=== PATIENT | male | born 1955 | race Caucasian/White ===

== ENCOUNTER → 2019-07-15 10:21 | Outpatient (BNVA) | payer OTHER, SELFPAY | PROVIDERS: Family Provider Family Medicine; PCP Family Medicine; Visit Provider Urology | DX: R97.20 Elevated prostate specific antigen [PSA] (principal) | CPT/HCPCS: 81001 ==

== ENCOUNTER 2020-03-10 08:13 | Outpatient (CLI) | payer OTHER, SELFPAY ==
[2020-03-10 08:29] VITALS: BMI 25.4
--- NOTE | 2020-03-10 09:18 | ECG_ITS ---
[facility] Test Date: 2020-03-10 Pat Name: David Munoz Department: Room: Gender: Male Card Maker: Laney Bassett : 1955 Requested By: Logan Villatoro Order Number: [id number] Irwin MD: Logan Villatoro M.D. Interpretive Statements NAME OF STUDY: EXERCISE SESTAMIBI STRESS TEST INDICATION: Chest Pain PROCEDURE: The baseline electrocardiogram showed normal sinus rhythm with normal ST-Ts. At the baseline, the patient's blood pressure was 140/94 mm Hg with a heart rate of 70. The patient exercised for 9 minutes and 31 seconds on a standard Oscar protocol. Patient attained a maximum heart rate of 139 beats per minute(89% of the maximum predicted heart rate) with a blood pressure at the peak exercise of 209/106 mm Hg. The EKG at the peak exercise revealed no significant changes. Patient did not have any chest pain or any significant arrhythmis with the exercise Sestamibi was injected 1 minute prior to the peak exercise During the recovery phase, there were no new changes. Blood pressure at the end of the recovery phase was 204/103 mm Hg with a heart rate of 66 per minute. CONCLUSION: 1. No significant EKG changes with the [treadmill exercise 2. No exercise-induced chest pain or cardiac arrhythmia 3. Good exercise tolerance, attained a maximum of 10.2 METs. Hypertensive response to exercise 4. Sestamibi/Sestamibi perfusion results pending; see separate report. Electronically Signed On 03-17-2020 20:04:20 HAT BRIM CURLER by Logan Villatoro M.D. [email or web address]
--- NOTE | 2020-03-10 09:18 | NMCV_ITS ---
NM aaliyah perf SPECT r/s* [id number] David Munoz Age: 64 Gender: M : 1955 Exam Date: 03/10/2020 09:18 Ordering Phys: Logan Villatoro MD ([email or web address]) Technologist: ELPIDIO Asencio Exam Location: [facility] Indications: SHORTNESS OF BREATH STRESS TEST Please see separate stress test report in [facility] for full findings IMAGE PROTOCOL Rest/Stress 1 Exercise Day Radiopharmaceutical Dose (mCi) Administration Site Administered by Rest: Tc-99m 10.9 IV ELPIDIO Asencio Sestamibi Stress:Tc-99m 32.8 IV Sestamibi Rest: 10-Mar-2020 Discovery 630 Stress: 10-Mar-2020 Discovery 630 Radiopharmaceutical was injected at 85 % maximum heart rate. Images obtained in supine and prone position. SPECT RESULTS Technical Quality: Excellent Raw Data Analysis: Normal Image Corrections: No attenuation or motion correction applied Summed Stress Score: 0 Summed Rest Score: 0 Summed Difference Score: 0 PERFUSION FINDINGS Fairly uniform myocardial tracer uptake with no significant perfusion abnormalities were noted FUNCTIONAL RESULTS (calculated via Gated SPECT) Stress Image LV EF (%): 72 Stress EDV (mL):89 TID: 0.77 Stress ESV (mL):25 FUNCTIONAL FINDINGS: Segmental wall motion analysis revealing no gross wall motion normalities. IMPRESSIONS 1. Unremarkable myocardial perfusion imaging 2. Normal LV ejection fraction of 72%. 3. LV wall motion analysis revealing no gross wall motion normalities. 4. Normal LV volume. No significant coronary ischemia, based on the above findings Dr Logan Villatoro MD FAC (Electronically Signed) Final Date: 15 March 2020 09:38 S
[2020-03-10 10:25] VITALS: BP 180/93; PULSE 87
== END 2020-03-10 08:14 | disposition home or self-care (01) ==
LOC: RAD 08:14 → CDL 08:27
PROVIDERS: Visit Provider Internal Medicine Cardiovascular Disease
DX: R06.02 Shortness of breath (principal)
CPT/HCPCS: 78452; 93017; A9500

== ENCOUNTER → 2020-07-14 09:08 | Outpatient (BNVA) | payer OTHER, SELFPAY | PROVIDERS: PCP Family Medicine; Visit Provider Urology | DX: R97.20 Elevated prostate specific antigen [PSA] (principal); E11.65 Type 2 diabetes mellitus with hyperglycemia | CPT/HCPCS: 81003 ==

== ENCOUNTER 2020-08-27 08:05 | Outpatient (CLI) | payer OTHER, SELFPAY ==
--- NOTE | 2020-08-27 08:15 | FL_ITS ---
WS: [id number] BARIUM ENEMA SINGLE CONTRAST. HISTORY: Z79.01 - [employer] (current) use of anticoagulants, prior appendectomy. COMPARISON: None available. FLUOROSCOPY TIME: 3.8 minutes. Barium is instilled via rectal tube and gravity. Marked tortuosity and overlapping loops of colon. Th ere are numerous diverticula in the sigmoid. No perforation or obstruction. No filling defects are pr esent. Overlapping bowel loops involving the hepatic flexure and the splenic flexure. There is a smal l amount of contrast extravasating into the small bowel. Cecum only minimally distends with contrast. Patient became uncomfortable with the distention of the colon towards the end of the examination. FL/FL barium enema [id number] IMPRESSION: 1. Sigmoid diverticulosis. 2. No strictures or mucosal lesions are identified. 3. Tortuous overlapping loops of colon. 4. Prior appendectomy.
== END 2020-08-27 08:06 | disposition home or self-care (01) ==
PROVIDERS: PCP Family Medicine; Visit Provider Surgery
DX: Z79.01 Long term (current) use of anticoagulants (principal); K57.30 Diverticulosis of large intestine without perforation or abscess without bleeding; Q42.8 Congenital absence, atresia and stenosis of other parts of large intestine
CPT/HCPCS: 74270

== ENCOUNTER 2021-01-10 06:00 | Outpatient (RCR) | payer OTHER, SELFPAY | END 2021-02-08 23:59 | disposition home or self-care (01) | LOC: SPT 06:00 | PROVIDERS: PCP Family Medicine; Visit Provider Family Medicine | DX: M75.01 Adhesive capsulitis of right shoulder (principal) | CPT/HCPCS: 97110; 97140; 97161 ==

== ENCOUNTER → 2021-01-18 08:29 | Outpatient (BNVA) | payer OTHER, SELFPAY | PROVIDERS: PCP Family Medicine; Visit Provider Urology | DX: R97.20 Elevated prostate specific antigen [PSA] (principal) | CPT/HCPCS: 81003 ==

== ENCOUNTER 2021-02-08 12:27 | Outpatient (CLI) | payer OTHER, SELFPAY ==
--- NOTE | 2021-02-08 12:38 | USCV_ITS ---
David Munoz Age: 65 Gender: M : 1955 Exam Date: 02/08/2021 13:20 Ordering Phys: Chanel Fraga MD Technologist: JESSICA Exam Location: [facility] [place] Indication: Smoker/AAA HISTORY: Diameter (cm) AP x Transverse x Length Velocity (cm/s) Waveform Prox Aorta: 1.91 x 2.14 x 66.10 Mid Aorta: 1.80 x 2.06 x 70.80 Distal Aorta: 1.89 x 2.14 x 63.80 Right Iliac Prox: 1.18 x 1.18 x 79.30 Left Iliac Prox: 1.15 x 1.12 x 105.30 Stent Prox Landing x x Aneurysmal Sac Max x x Lt Lat Sac Dim Rt Lat Sac Dim Stent Dist Landing x x Right Iliac Stent x x Left Iliac Stent x x Right Renal Art Left Renal Art FINDINGS: CONCLUSIONS No evidence of abdominal aortic or bilateral iliac aneurysm. 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 Kb Bell MD (Electronically Signed) Final Date: 09 February 2021 16:07 S
== END 2021-02-08 12:28 | disposition home or self-care (01) ==
LOC: RAD 12:28
PROVIDERS: PCP Family Medicine; Visit Provider Family Medicine
DX: I71.4 Abdominal aortic aneurysm, without rupture (principal); F17.210 Nicotine dependence, cigarettes, uncomplicated
CPT/HCPCS: 93978

== ENCOUNTER 2021-02-09 06:00 | Outpatient (RCR) | payer OTHER, SELFPAY | END 2021-03-01 23:59 | disposition home or self-care (01) | LOC: SPT 06:00 | PROVIDERS: PCP Family Medicine; Visit Provider Family Medicine | DX: M75.01 Adhesive capsulitis of right shoulder (principal) | CPT/HCPCS: 97110 ==

== ENCOUNTER 2021-06-21 15:28 | Outpatient (CLI) | payer OTHER, SELFPAY ==
--- NOTE | 2021-06-21 16:58 | MR_ITS ---
WS: [id number] MRI HEAD WITHOUT CONTRAST TECHNIQUE: Sagittal T1, T2 axial, T2 axial FLAIR, axial and coronal T1 images, axial susceptibility w eighted imaging, axial diffusion weighted images, and coronal T2 images were obtained. CLINICAL INFORMATION: TIA SYMPTOMS COMPARISON: MRI , CT FINDINGS: No evidence of restricted diffusion to suggest acute ischemia. Ventricular system and basal cisterns are patent. Mild small vessel changes. Mild parenchymal volume loss. Normal posterior fossa. Normal v ascular flow voids at the skull base. No extra-axial fluid collections. No evidence of mass or mass e ffect. Mild mucosal thickening in the paranasal sinuses. Mastoid air cells are well aerated. No hemosiderin on susceptibly weighted images. Normal optic chiasm and pituitary infundibulum. Mild t o moderate symmetric atrophy temporal lobes and hippocampal formations. MR/MR head wo con* [id number] IMPRESSION: 1. No evidence of restricted diffusion to suggest acute ischemia. 2. Mild small vessel changes with mild parenchymal volume loss unchanged since 2016. 3. Mild mucosal thickening paranasal sinuses. Mastoid air cells are well aerat ed. 4. No hemosiderin on susceptibly weighted images. 5. Mild to moderate symmetric atrophy temporal lobes and hippocampal formation s. 6. No other significant findings.
== END 2021-06-21 15:29 | disposition home or self-care (01) ==
LOC: RAD 15:29
PROVIDERS: PCP Family Medicine; Visit Provider Family Medicine
DX: Z01.89 Encounter for other specified special examinations (principal); G31.9 Degenerative disease of nervous system, unspecified
CPT/HCPCS: 70551

== ENCOUNTER 2021-07-19 07:49 | Outpatient (CLI) | payer OTHER, SELFPAY ==
[2021-07-19 08:32] LABS: Prostate Specific Antigen Scr 4.65 ng/mL (0-4)
== END 2021-07-19 07:50 | disposition home or self-care (01) ==
PROVIDERS: PCP Family Medicine; Visit Provider Urology
DX: R97.20 Elevated prostate specific antigen [PSA] (principal); Z95.5 Presence of coronary angioplasty implant and graft
CPT/HCPCS: 36415; 51798; 81003; 99213; G0103

== ENCOUNTER → 2021-09-14 09:59 | Outpatient (BNVA) | payer OTHER, SELFPAY | PROVIDERS: PCP Family Medicine; Visit Provider Internal Medicine Cardiovascular Disease | DX: I25.118 Atherosclerotic heart disease of native coronary artery with other forms of angina pectoris (principal); Z86.73 Personal history of transient ischemic attack (TIA), and cerebral infarction without residual deficits; E11.65 Type 2 diabetes mellitus with hyperglycemia; E78.2 Mixed hyperlipidemia; I10 Essential (primary) hypertension; Z87.891 Personal history of nicotine dependence; Z79.84 Long term (current) use of oral hypoglycemic drugs | CPT/HCPCS: 99214 ==

== ENCOUNTER 2021-09-29 19:00 | Emergency (ER) | payer OTHER, MEDICARE, SELFPAY ==
--- NOTE | 2021-09-29 19:35 | XRR_ITS ---
PROCEDURE INFORMATION: Exam: XR Right Hand Exam date and time: 09/29/2021 10:43 PM Age: 65 years old Clinical indication: Swelling; Hand; Right; Additional info: R hand swelling TECHNIQUE: Imaging protocol: Radiologic exam of the Right hand. Views: 3 or more views. COMPARISON: No relevant prior studies available. FINDINGS: Bones/joints: Mild joint space narrowing is seen in the interphalangeal joints compatible with osteoarthritic changes. Soft tissues: Normal. XR/XR hand RT min 3V* [id number] IMPRESSION: No acute findings.
[2021-09-29 19:41] VITALS: BP 160/86; PULSE 84; RESP 17; TEMP 37.7; O2SAT 96; BMI 26.4
--- NOTE | 2021-09-29 22:31 | ED_ITS ---
HPI - Wound/Laceration General: Chief Complaint: Wound/Laceration Stated Complaint: R hand swollen sent by urgant care Time Seen by Provider: 09/29/21 22:30 History of Present Illness: Mr Munoz is a 65-year-old gentleman with history of CAD, hypertension, hyperlipidemia, TIA, listed diabetes the patient denies history who presents to the emergency department due to arm concern. He reports playing with his puppy 2 days ago, puppy is up-to-date on vaccines including rabies, and was briefly caught by the tooth on the palmar aspect of his right hand near the thenar eminence. He denies puncture and thought it was just a small scrape. He treated it with local wound care and starting yesterday noticed some redness and swelling. Today's redness and swelling spread up the arm. He has aching moderate intensity pain especially with making a fist. Denies signs of definitive systemic illness. Denies frequent episodes of skin infection in the past. No other specific changes in health, exacerbating, or alleviating factors identified. Onset (ago): hour(s) Location: other Place: home Patient tetanus UTD: Yes Context: accidental Review of Systems General: Reports: 10 or more systems reviewed and unremarkable except in HPI and below PFSH ED PFSH: Medical History Anxiety Atypical chest pain CAD (coronary artery disease) Diabetes Elevated PSA Hyperlipidemia Hypertension TIA (transient ischemic attack) Surgical History H/O vasectomy Hx of appendectomy S/P right knee arthroscopy S/P T&A (status post tonsillectomy and adenoidectomy) Family History Grandfather Cancer Mother , at age 83 Diabetes Father No problems noted. Other Hypertension Denies family history of CAD (coronary artery disease) Clotting disorder Dementia Chronic kidney disease (CKD) Suicide Anesthesia complication Bleeding disorder Lung disease Stroke Social History Smoking and tobacco status: never smoked Alcohol intake: current Alcohol intake frequency: few times a month Marital status: Current occupational status: retired History of recent travel: No Physical Exam Const: COMMON NORMALS: alert GENERAL APPEARANCE: cooperative and well developed HENMT: COMMON NORMALS: normocephalic and atraumatic HEAD & SCALP: normo cephalic and atraumatic Eye: COMMON NORMALS: conjunctivae normal CONJUNCTIVA: Yes conjunctivae normal SCLERA: sclerae normal Neck/C-Spine: COMMON NORMALS: supple GENERAL: Yes trachea midline Resp: COMMON NORMALS: normal respiratory effort EFFORT & INSPECTION: Yes able to speak in complete sentences Cardio: COMMON NORMALS: regular rate and regular rhythm RATE: regular rate RHYTHM: regular rhythm GI: COMMON NORMALS: Soft to palpation PALPATION: Yes Soft to palpation and No Tenderness to palpation present (GI) PERCUSSION: normal to percussion Extremity: NARRATIVE EXTREMITY EXAM: Erythema and swelling about area of wound. There is some spread to mid forearm. Erythema is not circumferential. Mild tenderness to palpation. No evidence of tenosynovitis. Range of motion and distal CMS intact. GENERAL: Yes normal exam except as noted and No edema Neuro: COMMON NORMALS: moves all extremities SENSORIUM/ORIENTATION: Yes elan rt and No Orientation impaired Psych: COMMON NORMALS: mental status grossly normal and Normal thought process present THOUGHT PROCESS: Normal thought process present Course Vital Signs: Vital signs: Vital Signs Temperature 100 F H 09/29/21 19:41 Pulse Rate 65 09/30/21 01:46 Respiratory Rate 18 09/30/21 01:46 Blood Pressure 131/81 09/30/21 01:46 Pulse Oximetry 97 09/30/21 01:46 Oxygen Delivery Me thod 09/30/21 01:39 MDM - Wound/Laceration Medical Decision Making 65-year-old gentleman presenting with spreading erythema and swelling after vaccinated dog bite/scrape with teeth. Patient is nontoxic in appearance. No leukocytosis. Labs otherwise without significant abnormality. Antibiotics given and patient satisfactory for outpatient management with strict return precautions. Medical Records I reviewed the patient's medical records. Lab Data I reviewed the patient's lab results. : 09/29/21 22:20 09/29/21 22:20 Radiology Impressions Hand X-Ray 09/29/21 19:35 IMPRESSION: No acute findings. Laboratory Results WBC 9.9 10^3/uL (4.0-10.0) 09/29/21 22:20 RBC 4.47 10^6/uL (4.1-5.3) 09/29/21 22:20 Hgb 15.0 g/dL (11.7-16.6) 09/29/21 22:20 Hct 44.7 % (42.0-52.0) 09/29/21 22:20 MCV 100.0 fl (80-94) H 09/29/21 22:20 MCH 33.6 pg (28.0-34.0) 09/29/21 22:20 MCHC 33.6 g/dL (30.0-36.0) 09/29/21 22:20 RDW 13.5 % (12.1-15.1) 09/29/21 22:20 Plt Count 210 10^3/cmm (130-400) 09/29/21 22:20 MPV 9.4 fL (7.4-10.4) 09/29/21 22:20 Neut % (Auto) 67.0 % 09/29/21 22:20 Lymph % (Auto) 23.1 % 09/29/21 22:20 Spink % (Auto) 8.8 % 09/29/21 22:20 Eos % (Auto) 0.6 % 09/29/21 22:20 Baso % (Auto) 0.3 % 09/29/21 22:20 Neut # (Auto) 6.66 10^3/uL (1.8-7.7) 09/29/21 22:20 Lymph # (Auto) 2.3 10^3/uL (0.8-4.8) 09/29/21 22:20 Spink # (Auto) 0.9 10^3/uL (0.2-0.9) 09/29/21 22:20 Eos # (Auto) 0.1 10^3/uL (0.0-0.8) 09/29/21 22:20 Baso # (Auto) 0.0 10^3/uL (0.0-0.1) 09/29/21 22:20 Nucleated RBC % (auto) 0 % 09/29/21 22:20 Nucleated RBCs # 0.0 /100WBC 09/29/21 22:20 Sodium 136 mmol/L (136-145) 09/29/21 22:20 Potassium 4.0 mmol/L (3.5-5.1) 09/29/21 22:20 Chloride 99 mmol/L (98-107) 09/29/21 22:20 Carbon Dioxide 26 mmol/L (22-29) 09/29/21 22:20 Anion Gap 15.0 (5-19) 09/29/21 22:20 BUN 24 mg/dL (8-23) H 09/29/21 22:20 Creatinine 0.9 mg/dL (0.7-1.2) 09/29/21 22:20 GFR Calculation 84.4 mL/min (90-130) L 09/29/21 22:20 Glucose 107 mg/dL (65-115) 09/29/21 22:20 Calculated Osmolality 287 mOsm/kg (285-295) 09/29/21 22:20 Lactic Acid 1.1 mmol/L (0.5-2.2) 09/29/21 22:20 Calcium 9.8 mg/dL (8.5-10.5) 09/29/21 22:20 Discharge Plan Discharge Patient Disposition: Home Clinical Impression: Dog bite, Cellulitis Condition: Stable Prescriptions: New ciprofloxacin HCl 500 mg tablet 500 mg PO Q12H Qty: 14 0RF No Action clopidogrel 75 mg tablet 75 mg PO DAILY atorvastatin 80 mg tablet 80 mg PO DAILY Label Comments: alternates 1 tab with 1/2 tab every other day nitroglycerin [Nitrostat] 0.4 mg tablet, sublingual 0.4 mg SUBLINGUAL Q5M PRN losartan 50 mg tablet 50 mg PO DAILY cholecalciferol (vitamin D3) 25 mcg (1,000 unit) capsule 50 mcg PO DAILY citalopram 20 mg tablet 20 mg PO DAILY metoprolol tartrate 25 mg tablet 12.5 mg PO BID aspirin 81 mg tablet,delayed release (DR/EC) 81 mg PO DAILY Discharge Orders: Discharge ED (Routine); Ordered 09/30/21 Ordered By: Chetan Valdivia Referrals: Chanel Fraga MD [Primary Care Provider] - Discharge Diet: Usual diet Discharge Activity: Increase activity as tolerated Patient Instructions: Animal Bite (ED), Cellulitis (ED) Activity Restrictions/Additional Instructions: Thank you for visiting the emergency department. You were seen and evaluated for arm redness and swelling after animal bite. This will be treated with antibiotics. Please follow-up with your primary care provider. Please return to the emergency department for worsening symptoms, signs of systemic illness such as fevers or chills or nausea or vomiting, or anything else that you are concerned about and feel needs emergency department evaluation. Coding Level of Care Code ED Research Aide for Johanny Ruiz
[2021-09-29 23:11] VITALS: PULSE 63; RESP 20; O2SAT 98
[2021-09-29 23:18] LABS: Basophils % 0.3 %; Eosinophils # 0.1 10^3/uL (0.0-0.8); Eosinophils % 0.6 %; Hematocrit 44.7 % (42.0-52.0); Lymphocytes # 2.3 10^3/uL (0.8-4.8); Lymphocytes % 23.1 %; Mean Corpuscular HGB Conc 33.6 g/dL (30.0-36.0); Mean Corpuscular Hemoglobin 33.6 pg (28.0-34.0); Mean Platelet Volume 9.4 fL (7.4-10.4); Monocytes # 0.9 10^3/uL (0.2-0.9); Monocytes % 8.8 %; Neutrophils # 6.66 10^3/uL (1.8-7.7); Nucleated Red Blood Cells % 0 %; Platelet Count 210 10^3/cmm (130-400); Red Blood Count 4.47 10^6/uL (4.1-5.3); Red Cell Distribution Width 13.5 % (12.1-15.1); White Blood Count 9.9 10^3/uL (4.0-10.0)
[2021-09-29 23:27] LABS: Blood Urea Nitrogen 24 mg/dL (8-23); Calcium 9.8 mg/dL (8.5-10.5); Carbon Dioxide 26 mmol/L (22-29); Chloride 99 mmol/L (98-107); Glomerular Filtration Rate 84.4 mL/min (90-130); Glucose 107 mg/dL (65-115); Osmolality Calculated 287 mOsm/kg (285-295); Sodium 136 mmol/L (136-145)
[2021-09-29 23:28] LABS: Lactic Sepsis W/Reflex 1.1 mmol/L (0.5-2.2)
[2021-09-29] MEDS: ciprofloxacin 400 MG/200 ML PREMIX 200 MG IV (23:37)
[2021-09-30 00:28] VITALS: BP 144/84; PULSE 59; RESP 16; O2SAT 98
[2021-09-30] MEDS: clindamycin 600 MG/50 ML PREMIX 100 MG IV (00:33)
[2021-09-30 00:38] VITALS: BP 133/86; PULSE 59; RESP 18; O2SAT 96
[2021-09-30 01:39] VITALS: BP 131/81; PULSE 65; RESP 18; O2SAT 97
[2021-09-30 01:46] VITALS: BP 131/81; PULSE 65; RESP 18; O2SAT 97
== END 2021-09-30 01:45 | disposition home or self-care (01) ==
PROVIDERS: Emergency Provider Emergency Medicine; PCP Family Medicine
DX: L03.113 Cellulitis of right upper limb (principal); S61.451A Open bite of right hand, initial encounter; W54.0XXA Bitten by dog, initial encounter; Z79.02 Long term (current) use of antithrombotics/antiplatelets; Z79.82 Long term (current) use of aspirin; I25.10 Atherosclerotic heart disease of native coronary artery without angina pectoris; E11.9 Type 2 diabetes mellitus without complications; E78.5 Hyperlipidemia, unspecified; I10 Essential (primary) hypertension; Z86.73 Personal history of transient ischemic attack (TIA), and cerebral infarction without residual deficits
CPT/HCPCS: 73130; 80048; 83605; 85025; 87040; 96365; 96367; 99284; J0744; J3490

== ENCOUNTER → 2022-01-24 09:45 | Outpatient (BNVA) | payer OTHER, MEDICARE, SELFPAY | PROVIDERS: PCP Family Medicine; Visit Provider Urology | DX: N40.1 Benign prostatic hyperplasia with lower urinary tract symptoms (principal); R97.20 Elevated prostate specific antigen [PSA] | CPT/HCPCS: 81003; 99214 ==

== ENCOUNTER → 2022-03-22 09:12 | Outpatient (BNVA) | payer OTHER, SELFPAY | PROVIDERS: PCP Family Medicine; Visit Provider Internal Medicine Cardiovascular Disease | DX: I25.118 Atherosclerotic heart disease of native coronary artery with other forms of angina pectoris (principal); I10 Essential (primary) hypertension; E78.5 Hyperlipidemia, unspecified; E11.65 Type 2 diabetes mellitus with hyperglycemia; E78.2 Mixed hyperlipidemia; Z86.73 Personal history of transient ischemic attack (TIA), and cerebral infarction without residual deficits; Z87.891 Personal history of nicotine dependence | CPT/HCPCS: 99214 ==

== ENCOUNTER 2022-03-30 09:20 | Outpatient (CLI) | payer OTHER, SELFPAY ==
[2022-03-30 10:31] LABS: Alanine Aminotransferase 16 U/L (0-41); Albumin Level 4.2 g/dL (3.5-5.2); Alkaline Phosphatase 103 U/L (40-130); Aspartate Amino Transferase 20 U/L (0-40); Cholesterol 113 mg/dL (0-200); Globulin 2.8 g/dL (1.3-4.6); HDL Cholesterol 29 mg/dL (60-100); LDL Cholesterol Calculated 52 mg/dL (50-129); LDL HDL Ratio 1.79 RATIO (0.00-3.22); Total Bilirubin 0.5 mg/dL (0.15-1.2); Triglycerides 162 mg/dL (0-150)
== END 2022-03-30 09:21 | disposition home or self-care (01) ==
LOC: LAB 09:22
PROVIDERS: PCP Family Medicine; Visit Provider Internal Medicine Cardiovascular Disease
DX: E78.5 Hyperlipidemia, unspecified (principal); E11.65 Type 2 diabetes mellitus with hyperglycemia
CPT/HCPCS: 80061; 80076

== ENCOUNTER 2022-07-11 12:57 | Outpatient (CLI) | payer OTHER, SELFPAY ==
[2022-07-11 14:11] LABS: Prostate Specific AG Urology 4.33 ng/mL (0-4)
== END 2022-07-11 12:58 | disposition home or self-care (01) ==
PROVIDERS: PCP Family Medicine; Visit Provider Urology
DX: R97.20 Elevated prostate specific antigen [PSA] (principal)
CPT/HCPCS: 36415; 84153

== ENCOUNTER → 2022-07-18 13:56 | Outpatient (BNVA) | payer OTHER, SELFPAY | PROVIDERS: PCP Family Medicine; Visit Provider Urology | DX: N40.1 Benign prostatic hyperplasia with lower urinary tract symptoms (principal); R97.20 Elevated prostate specific antigen [PSA] | CPT/HCPCS: 51741; 51798; 99213 ==

== ENCOUNTER → 2022-10-02 14:38 | Outpatient (BNVA) | payer OTHER, SELFPAY | PROVIDERS: PCP Family Medicine; Visit Provider Internal Medicine Cardiovascular Disease | DX: I25.10 Atherosclerotic heart disease of native coronary artery without angina pectoris (principal); I10 Essential (primary) hypertension; E78.2 Mixed hyperlipidemia; Z86.73 Personal history of transient ischemic attack (TIA), and cerebral infarction without residual deficits; Z87.891 Personal history of nicotine dependence | CPT/HCPCS: 99214 ==

== ENCOUNTER 2022-10-06 07:29 | Outpatient (CLI) | payer OTHER, SELFPAY ==
[2022-10-06 08:37] LABS: Alanine Aminotransferase 16 U/L (0-41); Albumin Level 3.8 g/dL (3.5-5.2); Alkaline Phosphatase 95 U/L (40-130); Aspartate Amino Transferase 20 U/L (0-40); Chol HDL Ratio 4.17 mg/dL (1.0-5.00); Cholesterol 100 mg/dL (0-200); Globulin 2.6 g/dL (1.3-4.6); HDL Cholesterol 24 mg/dL (60-100); LDL Cholesterol Calculated 41 mg/dL (50-129); LDL HDL Ratio 1.71 RATIO (0.00-3.22); Total Bilirubin 0.4 mg/dL (0.15-1.2); Total Protein 6.4 g/dL (6.6-8.7); Triglycerides 177 mg/dL (0-150)
== END 2022-10-06 07:30 | disposition home or self-care (01) ==
LOC: LAB 07:31
PROVIDERS: PCP Family Medicine; Visit Provider Internal Medicine Cardiovascular Disease
DX: E78.5 Hyperlipidemia, unspecified (principal)
CPT/HCPCS: 36415; 80061; 80076

== ENCOUNTER → 2023-05-04 08:54 | Outpatient (BNVA) | payer OTHER, SELFPAY | PROVIDERS: PCP Family Medicine; Visit Provider Nurse Practitioner Family | DX: I25.10 Atherosclerotic heart disease of native coronary artery without angina pectoris (principal) | CPT/HCPCS: 93005; 99214 ==

== ENCOUNTER → 2023-12-03 15:09 | Outpatient (BNVA) | payer OTHER, SELFPAY | PROVIDERS: PCP Family Medicine; Visit Provider Internal Medicine Cardiovascular Disease | DX: E78.5 Hyperlipidemia, unspecified (principal); R07.9 Chest pain, unspecified | CPT/HCPCS: 93005; 99214 ==

== ENCOUNTER 2023-12-04 07:31 | Outpatient (CLI) | payer OTHER, SELFPAY ==
[2023-12-04 08:15] LABS: Alanine Aminotransferase 17 U/L (0-41); Albumin Level 4.1 g/dL (3.5-5.2); Alkaline Phosphatase 95 U/L (40-130); Aspartate Amino Transferase 20 U/L (0-40); Chol HDL Ratio 4.42 mg/dL (1.0-5.00); Cholesterol 115 mg/dL (0-200); Globulin 2.8 g/dL (1.3-4.6); HDL Cholesterol 26 mg/dL (60-100); LDL Cholesterol Calculated 56 mg/dL (50-129); LDL HDL Ratio 2.15 RATIO (0.00-3.22); Total Bilirubin 0.4 mg/dL (0.15-1.2); Total Protein 6.9 g/dL (6.6-8.7); Triglycerides 164 mg/dL (0-150)
== END 2023-12-04 07:32 | disposition home or self-care (01) ==
PROVIDERS: PCP Family Medicine; Visit Provider Internal Medicine Cardiovascular Disease
DX: E78.5 Hyperlipidemia, unspecified (principal); R07.9 Chest pain, unspecified; I25.118 Atherosclerotic heart disease of native coronary artery with other forms of angina pectoris; Z87.891 Personal history of nicotine dependence; I10 Essential (primary) hypertension; R53.83 Other fatigue; R94.31 Abnormal electrocardiogram [ECG] [EKG]
CPT/HCPCS: 36415; 80061; 80076

== ENCOUNTER 2024-03-24 20:00 | Outpatient (CLI) | payer OTHER, SELFPAY | END 2024-03-24 20:01 | disposition home or self-care (01) | LOC: SLEEP 23:37 | PROVIDERS: PCP Family Medicine; Visit Provider Family Medicine | DX: G47.33 Obstructive sleep apnea (adult) (pediatric) (principal) | CPT/HCPCS: 95810 ==

== ENCOUNTER → 2024-06-02 08:52 | Outpatient (BNVA) | payer OTHER, SELFPAY | PROVIDERS: PCP Family Medicine; Visit Provider Nurse Practitioner Family | DX: I25.118 Atherosclerotic heart disease of native coronary artery with other forms of angina pectoris (principal); R07.89 Other chest pain; E78.2 Mixed hyperlipidemia; I10 Essential (primary) hypertension; R53.83 Other fatigue | CPT/HCPCS: 99214 ==

== ENCOUNTER 2024-06-09 20:00 | Outpatient (CLI) | payer OTHER, SELFPAY | END 2024-06-09 20:01 | disposition home or self-care (01) | LOC: SLEEP 23:14 | PROVIDERS: PCP Family Medicine; Visit Provider Family Medicine | DX: G47.33 Obstructive sleep apnea (adult) (pediatric) (principal) | CPT/HCPCS: 95811 ==

== ENCOUNTER → 2025-01-29 14:10 | Outpatient (BNVA) | payer OTHER, SELFPAY | PROVIDERS: PCP Family Medicine; Visit Provider Orthopaedic Surgery | DX: S59.901A Unspecified injury of right elbow, initial encounter (principal); W19.XXXA Unspecified fall, initial encounter | CPT/HCPCS: 73080; 99203 ==

== ENCOUNTER → 2025-02-10 11:28 | Outpatient (BNVA) | payer OTHER, SELFPAY | PROVIDERS: PCP Family Medicine; Visit Provider Internal Medicine Cardiovascular Disease | DX: I25.10 Atherosclerotic heart disease of native coronary artery without angina pectoris (principal); E78.5 Hyperlipidemia, unspecified; I10 Essential (primary) hypertension; R00.1 Bradycardia, unspecified; Z79.02 Long term (current) use of antithrombotics/antiplatelets; Z79.82 Long term (current) use of aspirin; Z86.73 Personal history of transient ischemic attack (TIA), and cerebral infarction without residual deficits; Z87.891 Personal history of nicotine dependence; R07.9 Chest pain, unspecified; R06.02 Shortness of breath; N18.9 Chronic kidney disease, unspecified; I44.0 Atrioventricular block, first degree | CPT/HCPCS: 93005; 99214 ==